=== PATIENT | female | born 1940 | race Caucasian/White ===

== ENCOUNTER 2019-10-13 11:51 | Outpatient (CLI) | payer MEDICARE, SELFPAY ==
--- NOTE | 2019-10-13 11:59 | CT_ITS ---
WS: [id number] CT ABDOMEN AND PELVIS WITH AND WITHOUT CONTRAST HISTORY: ACUTE CYSTITIS, HEMATURIA TECHNIQUE: Unenhanced 5 mm axial imaging first performed through the abdomen. Post contrast imaging t hrough the abdomen and pelvis. Oral contrast has not been provided. Sagittal and coronal reformats a re submitted. All CT scans at [facility] use at least one of these dose optimization tech niques: automated exposure control; mA and/or kV adjustment per patient size (includes targeted exams where dose is matched to clinical indication); or iterative reconstruction. CONTRAST: Omnipaque 350; 95 mL IV. DLP: 3367.55 mGy-cm. COMPARISON: None available. Mild cardiomegaly. Dependent changes at the lung bases and small hiatal hernia. Hepatic steatosis dif fusely throughout the liver. Prior cholecystectomy. Few scattered hypodensities within the central sp luh do not enhance. Mild fatty replacement of the pancreas. No mass or duct dilatation. Common bile duct is normal size. No adrenal mass. Mild atherosclerosis aorta with no aneurysm. RIGHT kidney: RIGHT kidney measures 10.6 cm in length. 14 x 6 mm calcification in an extrarenal pelvi s not causing obstruction. There is some mild inflammatory change surrounding the RIGHT renal pelvis and proximal ureter. Additional 11 mm calcification in the lower pole. There is mild cortical thinnin g and increased sinus fat. RIGHT ureter is normal. LEFT kidney: LEFT kidney measures 11.3 cm in length. Mild cortical thinning and a few scattered calci fications with the largest measuring 3 mm in the mid kidney. Increased sinus fat. No mass. No obstruc tion. No GI tract obstruction. No inflammatory changes surrounding the colon. There is increased fat near t he ascending colon but no mass identified or inflammation. Urinary bladder is nondistended. Increase in lumbar lordosis and facet arthropathy in the lower lumbar spine. CT/CT abdomen pelvis wo/w [id number] IMPRESSION: 1. Mild renal atrophy and increased renal sinus fat. 2. Nonobstructing 14 x 6 mm calcification in the RIGHT extrarenal pelvis. Coul d be causing intermittent obstruction. Mild inflammatory changes are noted at t he renal pelvis and proximal RIGHT ureter. 3. Bilateral nonobstructing nephrolithiasis. The largest stone lower pole RIGH T kidney measures 11 mm. 4. Prior cholecystectomy. 5. Hepatic steatosis.
[2019-10-13 13:06] LABS: Blood Urea Nitrogen 9 mg/dL (8-23)
[2019-10-13] MEDS: iohexol 350 mg/mL 100 mL Btl IV (13:12)
== END 2019-10-13 11:52 | disposition home or self-care (01) ==
PROVIDERS: Family Provider Family Medicine; PCP Family Medicine; Referring Provider Family Medicine; Visit Provider Nurse Practitioner Family
DX: N30.00 Acute cystitis without hematuria (principal); R31.9 Hematuria, unspecified; N26.1 Atrophy of kidney (terminal); N20.0 Calculus of kidney; K76.0 Fatty (change of) liver, not elsewhere classified; Z90.49 Acquired absence of other specified parts of digestive tract
CPT/HCPCS: 74178; 82565; 84520; Q9967

== ENCOUNTER → 2020-03-30 10:00 | Outpatient (BNVA) | payer OTHER, MEDICARE, SELFPAY | PROVIDERS: Family Provider Family Medicine; PCP Family Medicine; Visit Provider Nurse Practitioner Family | DX: I10 Essential (primary) hypertension (principal); E03.9 Hypothyroidism, unspecified | CPT/HCPCS: 80053; 80061; 84439; 84443 ==

== ENCOUNTER → 2020-11-29 14:00 | Outpatient (BNVA) | payer OTHER, SELFPAY | PROVIDERS: Family Provider Family Medicine; PCP Nurse Practitioner Family; Visit Provider Nurse Practitioner Family | DX: Z20.822 Contact with and (suspected) exposure to COVID-19 (principal); I48.20 Chronic atrial fibrillation, unspecified; M79.10 Myalgia, unspecified site; R19.7 Diarrhea, unspecified; I10 Essential (primary) hypertension; Z68.41 Body mass index [BMI] 40.0-44.9, adult | CPT/HCPCS: 87635 ==

== ENCOUNTER → 2021-04-05 09:14 | Outpatient (BNVA) | payer OTHER, SELFPAY | PROVIDERS: Family Provider Family Medicine; PCP Nurse Practitioner Family; Visit Provider Nurse Practitioner Family | DX: E03.9 Hypothyroidism, unspecified (principal); I10 Essential (primary) hypertension | CPT/HCPCS: 80053; 80061; 84439; 84443 ==

== ENCOUNTER → 2021-05-02 16:37 | Outpatient (BNVA) | payer OTHER, SELFPAY | PROVIDERS: Family Provider Family Medicine; PCP Nurse Practitioner Family; Visit Provider Nurse Practitioner Family | DX: R10.9 Unspecified abdominal pain (principal); R30.0 Dysuria; R82.90 Unspecified abnormal findings in urine; N30.01 Acute cystitis with hematuria; Z68.41 Body mass index [BMI] 40.0-44.9, adult | CPT/HCPCS: 81003; 87086 ==

== ENCOUNTER → 2021-05-18 14:33 | Outpatient (BNVA) | payer OTHER, SELFPAY | PROVIDERS: Family Provider Family Medicine; PCP Nurse Practitioner Family; Visit Provider Family Medicine | DX: R35.0 Frequency of micturition (principal); N30.01 Acute cystitis with hematuria; Z68.41 Body mass index [BMI] 40.0-44.9, adult | CPT/HCPCS: 81003; 87086 ==

== ENCOUNTER → 2021-06-29 15:38 | Outpatient (BNVA) | payer OTHER, SELFPAY | PROVIDERS: Family Provider Family Medicine; PCP Nurse Practitioner Family; Visit Provider Nurse Practitioner Family | DX: R30.0 Dysuria (principal); N30.01 Acute cystitis with hematuria | CPT/HCPCS: 81000; 87086 ==

== ENCOUNTER → 2021-08-02 10:05 | Outpatient (BNVA) | payer OTHER, SELFPAY | PROVIDERS: Family Provider Family Medicine; PCP Nurse Practitioner Family; Visit Provider Nurse Practitioner Family | DX: N30.01 Acute cystitis with hematuria (principal); R30.0 Dysuria | CPT/HCPCS: 81000; 87077; 87086; 87184 ==

== ENCOUNTER → 2022-03-01 11:15 | Outpatient (BNVA) | payer OTHER, SELFPAY | PROVIDERS: PCP Nurse Practitioner Family; Visit Provider Nurse Practitioner Family | DX: N30.01 Acute cystitis with hematuria (principal); B07.9 Viral wart, unspecified | CPT/HCPCS: 81003; 87086 ==

== ENCOUNTER → 2022-04-11 13:25 | Outpatient (BNVA) | payer OTHER, SELFPAY | PROVIDERS: PCP Nurse Practitioner Family; Visit Provider Nurse Practitioner Family | DX: R31.9 Hematuria, unspecified (principal) | CPT/HCPCS: 81000 ==

== ENCOUNTER → 2022-04-25 08:01 | Outpatient (BNVA) | payer OTHER, SELFPAY | PROVIDERS: PCP Nurse Practitioner Family; Visit Provider Nurse Practitioner Family | DX: I48.19 Other persistent atrial fibrillation (principal) | CPT/HCPCS: 80048 ==

== ENCOUNTER → 2022-10-18 15:47 | Outpatient (BNVA) | payer MEDICARE, SELFPAY | PROVIDERS: PCP Nurse Practitioner Family; Visit Provider Nurse Practitioner Family | DX: R31.9 Hematuria, unspecified (principal) | CPT/HCPCS: 81000 ==

== ENCOUNTER 2023-06-07 10:22 | Outpatient (CLI) | payer MEDICARE, SELFPAY ==
--- NOTE | 2023-06-07 10:36 | XR_ITS ---
WS: [id number] Thoracic spine, 3 views, 06/07/2023 Clinical Data: M54.9 - Dorsalgia, unspecified Comparison: None. Findings: No compression fractures are seen. All of the thoracic intervertebral disc spaces show narrowing. The re is moderate osteoarthritic change. There is a kyphosis with a levoscoliosis. Diffuse osteoporosis is present. There are cholecystectomy clips in the right upper quadrant.. Impression: 1. Degenerative disc narrowing with diffuse osteoporosis. 2. Diffuse osteoarthritis with kyphosis.
--- NOTE | 2023-06-07 10:36 | XR_ITS ---
WS: [id number] Lumbar spine, 3 views, 06/07/2023 Clinical Data: M54.9 - Dorsalgia, unspecified Comparison: Lateral lumbar spine, 05/06/2018 Findings: No compression fractures are seen. There is degenerative disc narrowing at L4-L5 and L5-S1. There is a 0.6 cm subluxation of L5 on S1. The transverse processes and SI joints are normal. There is a slight dextroscoliosis with osteoporosis of all the vertebral bodies. There are right uppe r quadrant cholecystectomy clips. The abdominal aorta shows calcification but no aneurysm. Impression: 1. Degenerative disc narrowing at L4-L5 and L5-S1 with an anterior subluxation of 0.6 cm of L5 and S1 . 2. Dextroscoliosis with osteoporosis.
== END 2023-06-07 10:23 | disposition home or self-care (01) ==
PROVIDERS: PCP Nurse Practitioner Family; Visit Provider Nurse Practitioner Family
DX: M51.37 Other intervertebral disc degeneration, lumbosacral region (principal); M41.87 Other forms of scoliosis, lumbosacral region; M81.0 Age-related osteoporosis without current pathological fracture; G89.29 Other chronic pain; M54.9 Dorsalgia, unspecified; M51.34 Other intervertebral disc degeneration, thoracic region; M47.814 Spondylosis without myelopathy or radiculopathy, thoracic region
CPT/HCPCS: 72072; 72100

== ENCOUNTER → 2023-07-30 08:59 | Outpatient (BNVA) | payer MEDICARE, SELFPAY | PROVIDERS: PCP Nurse Practitioner Family; Visit Provider Nurse Practitioner Family | DX: E53.8 Deficiency of other specified B group vitamins (principal); R30.0 Dysuria; I10 Essential (primary) hypertension; E55.9 Vitamin D deficiency, unspecified | CPT/HCPCS: 80053; 80061; 81003; 82306; 82607; 83735; 84443; 87086 ==

== ENCOUNTER → 2024-10-14 11:16 | Outpatient (BNVA) | payer MEDICARE, SELFPAY | PROVIDERS: PCP Nurse Practitioner Family; Visit Provider Family Medicine | DX: I10 Essential (primary) hypertension (principal); E03.9 Hypothyroidism, unspecified; I48.20 Chronic atrial fibrillation, unspecified; F32.9 Major depressive disorder, single episode, unspecified; M79.7 Fibromyalgia; G62.9 Polyneuropathy, unspecified; G47.00 Insomnia, unspecified; R73.9 Hyperglycemia, unspecified; R79.89 Other specified abnormal findings of blood chemistry; Z76.89 Persons encountering health services in other specified circumstances | CPT/HCPCS: 80053; 80061; 82306; 82607; 82728; 82746; 83036; 83550; 83735; 84439; 84443; 84550; 85025; 85651; 86140 ==

== ENCOUNTER → 2025-04-22 15:26 | Outpatient (BNVA) | payer MEDICARE, SELFPAY | PROVIDERS: PCP Nurse Practitioner Family; Visit Provider Family Medicine | DX: R30.9 Painful micturition, unspecified (principal) | CPT/HCPCS: 81000 ==

== ENCOUNTER → 2025-05-25 15:19 | Outpatient (BNVA) | payer MEDICARE, SELFPAY | PROVIDERS: PCP Family Medicine; Visit Provider Nurse Practitioner Family | DX: N39.0 Urinary tract infection, site not specified (principal) | CPT/HCPCS: 81000; 87086 ==